=== PATIENT | female | born 1940 | race Two or more races ===

== ENCOUNTER 2021-08-20 09:02 | Inpatient (IN) | payer MEDICAID ==
[~2021-08-20] VITALS: Ht 157.5 cm; Wt 54.9 kg
[~2021-08-20 09:02] MED LIST: CALC-1305 PO; DOCU-138 MT; GABA-532 PO; INSU100I28 SQ; LEVO500T90 MT; LISINOPRIL-HCTZ; METF-416 PO; MIRT-89 PO
[2021-08-20] MEDS ORDERED: SODIUM CHLORIDE 0.9% 1000ML BAG (SEPSIS BOLUS) IV ONE (09:45)
[2021-08-20 10:02] LABS: INR 1.2; PROTHROMBIN TIME 12.4 sec (9.6-11.0)
[2021-08-20 10:10] LABS: BASOPHILS % 0.1 % (0.0-2.0); CHLORIDE 102 mEq/L (98-107); EOSINOPHILS % 0.1 % (0.0-5.0); HEMATOCRIT. 41.1 % (36.0-48.0); HEMOGLOBIN. 13.6 g/dL (12.0-16.0); LYMPHOCYTES % 9.9 % (20.0-50.0); MEAN CORPUSCULAR HEMOGLOBIN 30.1 pg (28.0-32.0); MEAN CORPUSCULAR VOLUME 90.6 fL (81.0-99.0); MEAN PLATELET VOLUME 9.3 fl (7.4-10.4); MONOCYTES % 2.7 % (2.0-8.0); NEUTROPHILS % 87.2 % (40.0-76.0); PLATELET 182 x1000/uL (130-400); RED BLOOD CELL COUNT 4.53 mill/uL (4.2-5.4); RED CELL DISTRIBUTION WIDTH 14.7 % (11.6-14.6)
[2021-08-20] MEDS ORDERED: PIPERACILLIN/TAZOBACTAM 3.375GM/50ML PREMIX IV NR (10:30)
[2021-08-20] MEDS: VANCOMYCIN 1G PREMIX 200 ML IV SCH (11:01)
[2021-08-20 11:26] LABS: CLARITY URINE CLOUDY (CLEAR); COLOR URINE YELLOW (YELLOW); KETONES URINE TRACE (NEGATIVE); LEUKOCYTE ESTERASE URINE 3+ (NEGATIVE); NITRITE URINE NEGATIVE (NEGATIVE); OCCULT BLOOD URINE 1+ (NEGATIVE); PH URINE 5.5 (4.5-8.0); PROTEIN URINE 1+ (NEGATIVE)
[2021-08-20] MEDS ORDERED: ONDANSETRON HCL 4MG/2ML INJ IV PRN (14:15)
[2021-08-20] MEDS: SODIUM CHLORIDE 0.9% 1,000 ML IV SCH (14:41)
[2021-08-20] MEDS ORDERED: CEFTRIAXONE 1 G PREMIX 50 ML IV SCH (15:00)
[2021-08-20] MEDS: AMLODIPINE 10MG TABLET PO SCH (17:45)
[2021-08-20] MEDS: BLOOD SUGAR DIAGNOSTIC STRIP TEST SCH (18:00)
[2021-08-21 04:57] LABS: BASOPHILS % 0.1 % (0.0-2.0); HEMATOCRIT. 39.3 % (36.0-48.0); HEMOGLOBIN. 13.1 g/dL (12.0-16.0); LYMPHOCYTES % 11.8 % (20.0-50.0); MEAN CORPUSCULAR HEMOGLOBIN 29.9 pg (28.0-32.0); MEAN CORPUSCULAR VOLUME 89.8 fL (81.0-99.0); MEAN PLATELET VOLUME 8.7 fl (7.4-10.4); NEUTROPHILS % 85.1 % (40.0-76.0); PLATELET 186 x1000/uL (130-400); RED BLOOD CELL COUNT 4.37 mill/uL (4.2-5.4); RED CELL DISTRIBUTION WIDTH 14.6 % (11.6-14.6)
[2021-08-21 05:14] LABS: CHLORIDE 104 mEq/L (98-107)
[2021-08-21] MEDS ORDERED: HYDRALAZINE 20MG/ML VIAL IV PRN (09:30)
[2021-08-21] MEDS: SODIUM CHLORIDE 0.9% 1,000 ML IV SCH (10:15)
[2021-08-21] MEDS: VANCOMYCIN 1G PREMIX 200 ML IV SCH (10:30)
[2021-08-21 13:00] VITALS: BP 175/90
[2021-08-21] MEDS ORDERED: POTASSIUM CHLORIDE INJ 40 MEQ in DEXT 5% WATER 250 ML IV NR (14:00)
[2021-08-21 15:06] VITALS: BP 175/90
[2021-08-21 16:00] VITALS: BP 142/71
[2021-08-21] MEDS: INSULIN LISPRO 100 UNITS/ML SUBCUT SCH ×2 (18:15→21:40)
[2021-08-21] MEDS: BLOOD SUGAR DIAGNOSTIC STRIP TEST SCH ×2 (18:17→21:35)
[2021-08-21 20:00] VITALS: BP 137/67
[2021-08-21] MEDS: CEFTRIAXONE 1,000 MG in DEXTROSE 5% WATER 50 ML IV SCH (21:35)
[2021-08-21] MEDS: INSULIN GLARGINE 100 UNITS/ML SUBCUT SCH (21:41)
[2021-08-21] MEDS ORDERED: HYDRALAZINE 10 MG in SODIUM CHLORIDE 0.9% 49.5 ML IV PRN (22:45)
[2021-08-22] VITALS: BP 101/60
[2021-08-22 04:00] VITALS: BP 109/54
[2021-08-22] MEDS ORDERED: MAGNESIUM 1 G PREMIX 100 ML IV SCH (04:00)
[2021-08-22] MEDS: SODIUM CHLORIDE 0.9% 1,000 ML IV SCH (05:56)
[2021-08-22] MEDS: DEXTROSE 50% WATER 50ML SYRINGE IV PRN (06:17)
[2021-08-22] MEDS: BLOOD SUGAR DIAGNOSTIC STRIP TEST SCH ×4 (06:21→21:10)
[2021-08-22 08:00] VITALS: BP 123/57
[2021-08-22] MEDS: AMLODIPINE 10MG TABLET PO SCH (08:26)
[2021-08-22] MEDS: INSULIN LISPRO 100 UNITS/ML SUBCUT SCH ×4 (08:27→21:00)
[2021-08-22] MEDS ORDERED: METOPROLOL SUCCINATE 50MG ER TABLET PO STA (10:48)
[2021-08-22] MEDS ORDERED: METOPROLOL TARTRATE 25MG TABLET PO NR (11:00)
[2021-08-22] MEDS: INSULIN GLARGINE 100 UNITS/ML SUBCUT SCH (11:14)
[2021-08-22 12:00] VITALS: BP 123/57
[2021-08-22 16:00] VITALS: BP 137/66
[2021-08-22 17:06] LABS: BASOPHILS % 0.2 % (0.0-2.0); EOSINOPHILS % 0.4 % (0.0-5.0); HEMATOCRIT. 38.4 % (36.0-48.0); HEMOGLOBIN. 12.8 g/dL (12.0-16.0); LYMPHOCYTES % 10.2 % (20.0-50.0); MEAN CORPUSCULAR HEMOGLOBIN 30.3 pg (28.0-32.0); MEAN CORPUSCULAR VOLUME 90.9 fL (81.0-99.0); MEAN PLATELET VOLUME 9.5 fl (7.4-10.4); MONOCYTES % 3.8 % (2.0-8.0); NEUTROPHILS % 85.4 % (40.0-76.0); PLATELET 231 x1000/uL (130-400); RED BLOOD CELL COUNT 4.23 mill/uL (4.2-5.4)
[2021-08-22 17:24] LABS: CHLORIDE 104 mEq/L (98-107)
[2021-08-22] MEDS: CEFTRIAXONE 1,000 MG in DEXTROSE 5% WATER 50 ML IV SCH (19:13)
[2021-08-22 20:00] VITALS: BP 148/72
[2021-08-22] MEDS: METOPROLOL TARTRATE 25MG TABLET PO SCH (21:10)
[2021-08-23] VITALS: BP 128/71
[2021-08-23] MEDS: SODIUM CHLORIDE 0.9% 1,000 ML IV SCH ×2 (01:18→21:49)
[2021-08-23 04:00] VITALS: BP 148/75
[2021-08-23] MEDS: BLOOD SUGAR DIAGNOSTIC STRIP TEST SCH ×4 (06:25→21:43)
[2021-08-23] MEDS: INSULIN LISPRO 100 UNITS/ML SUBCUT SCH ×4 (07:47→21:59)
[2021-08-23 07:59] VITALS: BP 111/72
[2021-08-23] MEDS: METOPROLOL TARTRATE 25MG TABLET PO SCH ×2 (08:29→21:50)
[2021-08-23] MEDS: AMLODIPINE 10MG TABLET PO SCH (08:38)
[2021-08-23] MEDS ORDERED: SULF1TAB48 MT (09:30)
[2021-08-23 12:26] VITALS: BP 142/85
[2021-08-23 16:14] VITALS: BP 150/72
[2021-08-23] MEDS: CEFTRIAXONE 1,000 MG in DEXTROSE 5% WATER 50 ML IV SCH (18:15)
[2021-08-23 20:00] VITALS: BP 155/62
[2021-08-23] MEDS: PANTOPRAZOLE SODIUM 40 MG/VIAL IV SCH (21:50)
[2021-08-24] VITALS: BP 130/65
[2021-08-24 04:00] VITALS: BP 168/83
[2021-08-24] MEDS ORDERED: HYDRALAZINE 20MG/ML VIAL IV PRN (06:30)
[2021-08-24] MEDS: BLOOD SUGAR DIAGNOSTIC STRIP TEST SCH ×4 (06:32→21:00)
[2021-08-24 07:16] LABS: BASOPHILS % 0.1 % (0.0-2.0); EOSINOPHILS % 2.3 % (0.0-5.0); HEMATOCRIT. 40.1 % (36.0-48.0); HEMOGLOBIN. 13.5 g/dL (12.0-16.0); LYMPHOCYTES % 16.2 % (20.0-50.0); MEAN CORPUSCULAR HEMOGLOBIN 30.4 pg (28.0-32.0); MEAN CORPUSCULAR VOLUME 90.3 fL (81.0-99.0); MONOCYTES % 4.6 % (2.0-8.0); NEUTROPHILS % 76.8 % (40.0-76.0); PLATELET 194 x1000/uL (130-400); RED BLOOD CELL COUNT 4.44 mill/uL (4.2-5.4); RED CELL DISTRIBUTION WIDTH 14.9 % (11.6-14.6)
[2021-08-24 07:38] VITALS: BP 164/69
[2021-08-24] MEDS: INSULIN LISPRO 100 UNITS/ML SUBCUT SCH ×4 (07:50→21:00)
[2021-08-24 07:57] LABS: CHLORIDE 106 mEq/L (98-107)
[2021-08-24] MEDS: AMLODIPINE 10MG TABLET PO SCH ×2 (08:19→09:41)
[2021-08-24] MEDS: METOPROLOL TARTRATE 25MG TABLET PO SCH ×3 (08:19→21:00)
[2021-08-24] MEDS: PANTOPRAZOLE SODIUM 40 MG/VIAL IV SCH ×2 (09:10→22:35)
[2021-08-24 10:49] LABS: INR 1.1; PROTHROMBIN TIME 11.4 sec (9.6-11.0)
[2021-08-24 12:09] VITALS: BP 137/69
[2021-08-24] MEDS ORDERED: MIDAZOLAM HCL 2 MG/2 ML VIAL ONE (16:08)
[2021-08-24] MEDS ORDERED: PROPOFOL 200MG/20ML VIAL IV ONE (16:08)
[2021-08-24] MEDS ORDERED: CEFAZOLIN SODIUM 1000MG/VIAL ONE (16:17)
[2021-08-24] MEDS: CEFTRIAXONE 1,000 MG in DEXTROSE 5% WATER 50 ML IV SCH (18:28)
[2021-08-24] MEDS: SODIUM CHLORIDE 0.9% 1,000 ML IV SCH (18:28)
[2021-08-24 20:00] VITALS: BP 107/58
[2021-08-25 04:00] VITALS: BP 144/66
[2021-08-25 07:06] LABS: CHLORIDE 106 mEq/L (98-107)
[2021-08-25] MEDS: BLOOD SUGAR DIAGNOSTIC STRIP TEST SCH ×4 (07:20→20:59)
[2021-08-25 08:00] VITALS: BP 149/78
[2021-08-25 09:23] LABS: BASOPHILS % 0.1 % (0.0-2.0); EOSINOPHILS % 1.4 % (0.0-5.0); HEMATOCRIT. 39.4 % (36.0-48.0); HEMOGLOBIN. 12.8 g/dL (12.0-16.0); LYMPHOCYTES % 15.3 % (20.0-50.0); MEAN CORPUSCULAR HEMOGLOBIN 30.1 pg (28.0-32.0); MEAN CORPUSCULAR VOLUME 92.5 fL (81.0-99.0); MEAN PLATELET VOLUME 8.6 fl (7.4-10.4); MONOCYTES % 4.6 % (2.0-8.0); NEUTROPHILS % 78.6 % (40.0-76.0); PLATELET 185 x1000/uL (130-400); RED BLOOD CELL COUNT 4.26 mill/uL (4.2-5.4)
[2021-08-25] MEDS: PANTOPRAZOLE SODIUM 40 MG/VIAL IV SCH ×2 (09:32→20:58)
[2021-08-25] MEDS: AMLODIPINE 10MG TABLET PO SCH (09:32)
[2021-08-25] MEDS: METOPROLOL TARTRATE 25MG TABLET PO SCH ×2 (09:32→20:58)
[2021-08-25] MEDS: INSULIN LISPRO 100 UNITS/ML SUBCUT SCH ×4 (09:48→20:59)
[2021-08-25 12:00] VITALS: BP 131/63
[2021-08-25 15:50] VITALS: BP 123/65
[2021-08-25] MEDS: SODIUM CHLORIDE 0.9% 1,000 ML IV SCH (16:57)
[2021-08-25] MEDS: CEFTRIAXONE 1,000 MG in DEXTROSE 5% WATER 50 ML IV SCH (18:30)
[2021-08-25 20:00] VITALS: BP 129/67
[2021-08-26] VITALS (7 sets, daily range): BP systolic 106–155; BP diastolic 70–88
[2021-08-26] MEDS: BLOOD SUGAR DIAGNOSTIC STRIP TEST SCH ×4 (06:17→21:14)
[2021-08-26 07:06] LABS: CHLORIDE 104 mEq/L (98-107)
[2021-08-26 07:30] LABS: BASOPHILS % 0.2 % (0.0-2.0); EOSINOPHILS % 1.8 % (0.0-5.0); HEMATOCRIT. 32.2 % (36.0-48.0); MEAN CORPUSCULAR HEMOGLOBIN 30.7 pg (28.0-32.0); MEAN CORPUSCULAR VOLUME 89.9 fL (81.0-99.0); MEAN PLATELET VOLUME 8.7 fl (7.4-10.4); MONOCYTES % 5.5 % (2.0-8.0); NEUTROPHILS % 80.5 % (40.0-76.0); PLATELET 233 x1000/uL (130-400); RED BLOOD CELL COUNT 3.58 mill/uL (4.2-5.4); RED CELL DISTRIBUTION WIDTH 14.7 % (11.6-14.6)
[2021-08-26] MEDS: INSULIN LISPRO 100 UNITS/ML SUBCUT SCH ×4 (07:49→21:13)
[2021-08-26] MEDS: PANTOPRAZOLE SODIUM 40 MG/VIAL IV SCH ×2 (09:15→21:11)
[2021-08-26] MEDS: METOPROLOL TARTRATE 25MG TABLET PO SCH ×2 (09:15→21:14)
[2021-08-26] MEDS: AMLODIPINE 10MG TABLET PO SCH (09:15)
[2021-08-26] MEDS: SODIUM CHLORIDE 0.9% 1,000 ML IV SCH (10:15)
[2021-08-26] MEDS ORDERED: INSULIN GLARGINE 100 UNITS/ML SUBCUT NR (11:00)
[2021-08-26] MEDS: ACETAMINOPHEN 325MG TABLET PO PRN (18:17)
[2021-08-26] MEDS ORDERED: INSULIN GLARGINE 100 UNITS/ML SUBCUT SCH (22:00)
[2021-08-27 03:50] VITALS: BP 119/66
[2021-08-27] MEDS: BLOOD SUGAR DIAGNOSTIC STRIP TEST SCH ×4 (06:29→20:50)
[2021-08-27] MEDS: DEXTROSE 50% WATER 50ML SYRINGE IV PRN (06:30)
[2021-08-27] MEDS: SODIUM CHLORIDE 0.9% 1,000 ML IV SCH (06:30)
[2021-08-27] MEDS: INSULIN LISPRO 100 UNITS/ML SUBCUT SCH ×4 (07:50→20:50)
[2021-08-27 08:00] VITALS: BP 150/83
[2021-08-27] MEDS: PANTOPRAZOLE SODIUM 40 MG/VIAL IV SCH ×2 (08:27→21:03)
[2021-08-27] MEDS: METOPROLOL TARTRATE 25MG TABLET PO SCH ×2 (08:28→21:03)
[2021-08-27] MEDS: AMLODIPINE 10MG TABLET PO SCH (08:28)
[2021-08-27 09:18] LABS: BASOPHILS % 0.2 % (0.0-2.0); EOSINOPHILS % 1.5 % (0.0-5.0); HEMATOCRIT. 32.5 % (36.0-48.0); HEMOGLOBIN. 11.2 g/dL (12.0-16.0); MEAN CORPUSCULAR HEMOGLOBIN 30.6 pg (28.0-32.0); MEAN CORPUSCULAR VOLUME 89.1 fL (81.0-99.0); MEAN PLATELET VOLUME 8.6 fl (7.4-10.4); NEUTROPHILS % 81.3 % (40.0-76.0); PLATELET 257 x1000/uL (130-400); RED BLOOD CELL COUNT 3.65 mill/uL (4.2-5.4); RED CELL DISTRIBUTION WIDTH 14.9 % (11.6-14.6)
[2021-08-27 09:32] LABS: CHLORIDE 108 mEq/L (98-107)
[2021-08-27] MEDS ORDERED: TRAMADOL 50MG TABLET PO PRN (11:15)
[2021-08-27] MEDS ORDERED: NALOXONE HCL 0.4MG/ML VIAL IV PRN (11:45)
[2021-08-27 12:03] VITALS: BP 157/66
[2021-08-27 16:00] VITALS: BP 156/74
[2021-08-27] MEDS: ACETAMINOPHEN 325MG TABLET PO PRN (18:05)
[2021-08-27 20:00] VITALS: BP 137/81
[2021-08-27] MEDS: INSULIN GLARGINE 100 UNITS/ML SUBCUT SCH (21:04)
[2021-08-27] MEDS: NITROGLYCERIN OINT 1GM/INCH UDPKT TD SCH (22:00)
[2021-08-28] VITALS: BP 112/58
[2021-08-28] MEDS: SODIUM CHLORIDE 0.9% 1,000 ML IV SCH ×2 (02:05→22:16)
[2021-08-28 03:57] VITALS: BP 114/51
[2021-08-28] MEDS: NITROGLYCERIN OINT 1GM/INCH UDPKT TD SCH (05:57)
[2021-08-28] MEDS: BLOOD SUGAR DIAGNOSTIC STRIP TEST SCH ×4 (06:44→20:42)
[2021-08-28 07:39] LABS: BASOPHILS % 0.2 % (0.0-2.0); EOSINOPHILS % 2.7 % (0.0-5.0); HEMOGLOBIN. 10.5 g/dL (12.0-16.0); LYMPHOCYTES % 13.2 % (20.0-50.0); MEAN CORPUSCULAR HEMOGLOBIN 30.4 pg (28.0-32.0); MEAN CORPUSCULAR VOLUME 89.6 fL (81.0-99.0); MEAN PLATELET VOLUME 8.3 fl (7.4-10.4); MONOCYTES % 6.8 % (2.0-8.0); NEUTROPHILS % 77.1 % (40.0-76.0); PLATELET 240 x1000/uL (130-400); RED BLOOD CELL COUNT 3.46 mill/uL (4.2-5.4); RED CELL DISTRIBUTION WIDTH 14.9 % (11.6-14.6)
[2021-08-28 07:45] LABS: CHLORIDE 103 mEq/L (98-107)
[2021-08-28 07:51] VITALS: BP 130/57
[2021-08-28] MEDS: INSULIN LISPRO 100 UNITS/ML SUBCUT SCH ×4 (08:31→22:14)
[2021-08-28] MEDS: PANTOPRAZOLE SODIUM 40 MG/VIAL IV SCH ×2 (08:53→21:45)
[2021-08-28] MEDS: METOPROLOL TARTRATE 25MG TABLET PO SCH ×2 (08:53→21:46)
[2021-08-28] MEDS: AMLODIPINE 10MG TABLET PO SCH (08:54)
[2021-08-28] MEDS: INSULIN GLARGINE 100 UNITS/ML SUBCUT SCH ×2 (10:49→22:15)
[2021-08-28 12:00] VITALS: BP 119/53
[2021-08-28 16:00] VITALS: BP 123/63
[2021-08-28 20:00] VITALS: BP 122/50
[2021-08-29] VITALS: BP 122/65
[2021-08-29 04:00] VITALS: BP 120/56
[2021-08-29] MEDS: BLOOD SUGAR DIAGNOSTIC STRIP TEST SCH ×4 (06:36→20:39)
[2021-08-29] MEDS: INSULIN LISPRO 100 UNITS/ML SUBCUT SCH ×4 (07:50→21:12)
[2021-08-29 08:06] VITALS: BP 134/71
[2021-08-29] MEDS: PANTOPRAZOLE SODIUM 40 MG/VIAL IV SCH ×2 (08:54→20:59)
[2021-08-29] MEDS: AMLODIPINE 10MG TABLET PO SCH (08:55)
[2021-08-29] MEDS: METOPROLOL TARTRATE 25MG TABLET PO SCH ×2 (08:55→21:00)
[2021-08-29] MEDS: INSULIN GLARGINE 100 UNITS/ML SUBCUT SCH ×2 (10:24→21:11)
[2021-08-29 12:07] VITALS: BP 122/62
[2021-08-29 16:15] VITALS: BP 112/54
[2021-08-29] MEDS: SODIUM CHLORIDE 0.9% 1,000 ML IV SCH (18:49)
[2021-08-29 20:00] VITALS: BP 110/54
[2021-08-30] VITALS: BP 118/54
[2021-08-30 04:00] VITALS: BP 120/56
[2021-08-30] MEDS: BLOOD SUGAR DIAGNOSTIC STRIP TEST SCH ×4 (06:45→20:25)
[2021-08-30 07:03] LABS: BASOPHILS % 0.3 % (0.0-2.0); EOSINOPHILS % 0.8 % (0.0-5.0); HEMATOCRIT. 36.6 % (36.0-48.0); HEMOGLOBIN. 12.3 g/dL (12.0-16.0); LYMPHOCYTES % 12.3 % (20.0-50.0); MEAN CORPUSCULAR HEMOGLOBIN 30.4 pg (28.0-32.0); MEAN CORPUSCULAR VOLUME 90.5 fL (81.0-99.0); MEAN PLATELET VOLUME 8.5 fl (7.4-10.4); MONOCYTES % 3.8 % (2.0-8.0); NEUTROPHILS % 82.8 % (40.0-76.0); PLATELET 322 x1000/uL (130-400); RED BLOOD CELL COUNT 4.05 mill/uL (4.2-5.4)
[2021-08-30 07:28] LABS: CHLORIDE 103 mEq/L (98-107)
[2021-08-30] MEDS: INSULIN LISPRO 100 UNITS/ML SUBCUT SCH ×4 (07:39→21:22)
[2021-08-30 07:46] VITALS: BP 165/94
[2021-08-30] MEDS: PANTOPRAZOLE SODIUM 40 MG/VIAL IV SCH ×2 (08:28→21:11)
[2021-08-30] MEDS: DOCUSATE SODIUM SUGAR FREE 100MG/10ML UDC GT SCH (08:28)
[2021-08-30] MEDS: AMLODIPINE 10MG TABLET PO SCH (08:29)
[2021-08-30] MEDS: METOPROLOL TARTRATE 25MG TABLET PO SCH ×2 (08:29→21:11)
[2021-08-30] MEDS: ACETAMINOPHEN 325MG TABLET PO PRN (08:39)
[2021-08-30] MEDS: INSULIN GLARGINE 100 UNITS/ML SUBCUT SCH ×2 (09:02→21:22)
[2021-08-30] MEDS ORDERED: LIDOCAINE HCL/PF 2% 20MG/ML 5 ML/VIAL INJ NR (10:15)
[2021-08-30] MEDS ORDERED: LIDOCAINE HCL 2% JELLY 5ML TOP NR (10:17)
[2021-08-30 11:48] VITALS: BP 114/65
[2021-08-30] MEDS: SODIUM CHLORIDE 0.9% 1,000 ML IV SCH (14:22)
[2021-08-30 20:00] VITALS: BP 127/60
[2021-08-31] VITALS: BP 92/53
[2021-08-31 04:00] VITALS: BP 145/55
[2021-08-31] MEDS: BLOOD SUGAR DIAGNOSTIC STRIP TEST SCH ×4 (06:57→20:35)
[2021-08-31 07:14] LABS: BASOPHILS % 0.4 % (0.0-2.0); EOSINOPHILS % 1.4 % (0.0-5.0); HEMATOCRIT. 34.2 % (36.0-48.0); HEMOGLOBIN. 11.5 g/dL (12.0-16.0); LYMPHOCYTES % 17.1 % (20.0-50.0); MEAN CORPUSCULAR HEMOGLOBIN 30.4 pg (28.0-32.0); MEAN CORPUSCULAR VOLUME 90.4 fL (81.0-99.0); MEAN PLATELET VOLUME 8.5 fl (7.4-10.4); MONOCYTES % 4.2 % (2.0-8.0); NEUTROPHILS % 76.9 % (40.0-76.0); PLATELET 337 x1000/uL (130-400); RED BLOOD CELL COUNT 3.79 mill/uL (4.2-5.4); RED CELL DISTRIBUTION WIDTH 15.1 % (11.6-14.6)
[2021-08-31 07:31] LABS: CHLORIDE 100 mEq/L (98-107)
[2021-08-31] MEDS: INSULIN LISPRO 100 UNITS/ML SUBCUT SCH ×4 (07:39→20:41)
[2021-08-31 07:44] VITALS: BP 148/101
[2021-08-31] MEDS: PANTOPRAZOLE SODIUM 40 MG/VIAL IV SCH ×2 (08:49→20:40)
[2021-08-31] MEDS: METOPROLOL TARTRATE 25MG TABLET PO SCH ×2 (08:49→20:39)
[2021-08-31] MEDS: DOCUSATE SODIUM SUGAR FREE 100MG/10ML UDC GT SCH (08:49)
[2021-08-31] MEDS: AMLODIPINE 10MG TABLET PO SCH (08:50)
[2021-08-31] MEDS: INSULIN GLARGINE 100 UNITS/ML SUBCUT SCH (09:14)
[2021-08-31] MEDS: SODIUM CHLORIDE 0.9% 1,000 ML IV SCH (09:24)
[2021-08-31] MEDS ORDERED: LIDOCAINE HCL/PF 2% 20MG/ML 5 ML/VIAL INJ NR (10:15)
[2021-08-31] MEDS ORDERED: LIDOCAINE HCL 2% JELLY 5ML TOP NR (10:17)
[2021-08-31 12:12] VITALS: BP 138/56
[2021-08-31] MEDS ORDERED: HYDRALAZINE 10 MG in SODIUM CHLORIDE 0.9% 49.5 ML IV PRN (13:00)
[2021-08-31 16:00] VITALS: BP 130/68
[2021-08-31 20:00] VITALS: BP 124/55
[2021-09-01] VITALS: BP 114/55
[2021-09-01 04:00] VITALS: BP 140/71
[2021-09-01] MEDS: SODIUM CHLORIDE 0.9% 1,000 ML IV SCH (05:16)
[2021-09-01 06:07] LABS: BASOPHILS % 0.5 % (0.0-2.0); EOSINOPHILS % 1.8 % (0.0-5.0); HEMATOCRIT. 29.4 % (36.0-48.0); HEMOGLOBIN. 9.9 g/dL (12.0-16.0); LYMPHOCYTES % 15.9 % (20.0-50.0); MEAN CORPUSCULAR HEMOGLOBIN 30.7 pg (28.0-32.0); MEAN PLATELET VOLUME 8.5 fl (7.4-10.4); MONOCYTES % 5.3 % (2.0-8.0); NEUTROPHILS % 76.5 % (40.0-76.0); PLATELET 274 x1000/uL (130-400); RED BLOOD CELL COUNT 3.23 mill/uL (4.2-5.4); RED CELL DISTRIBUTION WIDTH 15.3 % (11.6-14.6)
[2021-09-01 06:12] LABS: CHLORIDE 100 mEq/L (98-107)
[2021-09-01] MEDS: BLOOD SUGAR DIAGNOSTIC STRIP TEST SCH ×4 (07:30→21:28)
[2021-09-01] MEDS: INSULIN LISPRO 100 UNITS/ML SUBCUT SCH ×4 (07:50→21:41)
[2021-09-01 08:00] VITALS: BP 150/82
[2021-09-01] MEDS: DOCUSATE SODIUM SUGAR FREE 100MG/10ML UDC GT SCH (08:51)
[2021-09-01] MEDS: PANTOPRAZOLE SODIUM 40 MG/VIAL IV SCH ×2 (08:52→21:16)
[2021-09-01] MEDS: AMLODIPINE 10MG TABLET PO SCH (08:54)
[2021-09-01] MEDS: METOPROLOL TARTRATE 25MG TABLET PO SCH ×2 (08:54→21:17)
[2021-09-01 12:00] VITALS: BP 130/91
[2021-09-01 16:00] VITALS: BP 142/66
[2021-09-01 20:07] VITALS: BP 142/63
[2021-09-01] MEDS: INSULIN GLARGINE 100 UNITS/ML SUBCUT SCH (21:42)
[2021-09-02] VITALS: BP 102/60
[2021-09-02] MEDS: SODIUM CHLORIDE 0.9% 1,000 ML IV SCH ×2 (01:21→22:00)
[2021-09-02 04:00] VITALS: BP 134/53
[2021-09-02] MEDS: BLOOD SUGAR DIAGNOSTIC STRIP TEST SCH ×4 (06:23→21:43)
[2021-09-02] MEDS: INSULIN LISPRO 100 UNITS/ML SUBCUT SCH ×4 (07:50→21:42)
[2021-09-02 08:00] VITALS: BP 151/70
[2021-09-02 08:01] LABS: BASOPHILS % 0.4 % (0.0-2.0); EOSINOPHILS % 1.4 % (0.0-5.0); HEMATOCRIT. 33.5 % (36.0-48.0); HEMOGLOBIN. 11.2 g/dL (12.0-16.0); LYMPHOCYTES % 12.9 % (20.0-50.0); MEAN CORPUSCULAR HEMOGLOBIN 30.7 pg (28.0-32.0); MEAN CORPUSCULAR VOLUME 91.9 fL (81.0-99.0); MEAN PLATELET VOLUME 8.9 fl (7.4-10.4); MONOCYTES % 4.8 % (2.0-8.0); NEUTROPHILS % 80.5 % (40.0-76.0); PLATELET 291 x1000/uL (130-400); RED BLOOD CELL COUNT 3.65 mill/uL (4.2-5.4); RED CELL DISTRIBUTION WIDTH 15.5 % (11.6-14.6)
[2021-09-02] MEDS: AMLODIPINE 10MG TABLET PO SCH (09:00)
[2021-09-02] MEDS: DOCUSATE SODIUM SUGAR FREE 100MG/10ML UDC GT SCH (09:00)
[2021-09-02 09:18] LABS: CHLORIDE 102 mEq/L (98-107)
[2021-09-02] MEDS: INSULIN GLARGINE 100 UNITS/ML SUBCUT SCH ×2 (10:00→21:43)
[2021-09-02] MEDS: PANTOPRAZOLE SODIUM 40 MG/VIAL IV SCH ×2 (11:00→21:29)
[2021-09-02] MEDS: METOPROLOL TARTRATE 25MG TABLET PO SCH ×2 (11:08→21:39)
[2021-09-02 12:00] VITALS: BP 104/60
[2021-09-02 16:00] VITALS: BP 124/56
[2021-09-02 20:00] VITALS: BP 112/48
[2021-09-03] VITALS: BP 130/55
[2021-09-03 04:00] VITALS: BP 140/60
[2021-09-03 06:34] LABS: BASOPHILS % 0.5 % (0.0-2.0); EOSINOPHILS % 1.4 % (0.0-5.0); HEMATOCRIT. 31.4 % (36.0-48.0); HEMOGLOBIN. 10.5 g/dL (12.0-16.0); LYMPHOCYTES % 14.1 % (20.0-50.0); MEAN CORPUSCULAR HEMOGLOBIN 30.8 pg (28.0-32.0); MEAN CORPUSCULAR VOLUME 92.3 fL (81.0-99.0); MEAN PLATELET VOLUME 8.1 fl (7.4-10.4); MONOCYTES % 5.3 % (2.0-8.0); NEUTROPHILS % 78.7 % (40.0-76.0); PLATELET 297 x1000/uL (130-400); RED BLOOD CELL COUNT 3.41 mill/uL (4.2-5.4); RED CELL DISTRIBUTION WIDTH 15.4 % (11.6-14.6)
[2021-09-03 06:36] LABS: CHLORIDE 105 mEq/L (98-107)
[2021-09-03] MEDS: BLOOD SUGAR DIAGNOSTIC STRIP TEST SCH ×4 (06:44→21:30)
[2021-09-03] MEDS: INSULIN LISPRO 100 UNITS/ML SUBCUT SCH ×4 (07:50→22:19)
[2021-09-03 08:00] VITALS: BP 161/79
[2021-09-03] MEDS: DOCUSATE SODIUM SUGAR FREE 100MG/10ML UDC GT SCH (09:49)
[2021-09-03] MEDS: PANTOPRAZOLE SODIUM 40 MG/VIAL IV SCH ×2 (09:50→21:30)
[2021-09-03] MEDS: METOPROLOL TARTRATE 25MG TABLET PO SCH ×2 (09:50→21:00)
[2021-09-03] MEDS: AMLODIPINE 10MG TABLET PO SCH (09:51)
[2021-09-03] MEDS: INSULIN GLARGINE 100 UNITS/ML SUBCUT SCH ×2 (11:05→22:20)
[2021-09-03 12:00] VITALS: BP 147/69
[2021-09-03 16:00] VITALS: BP 101/53
[2021-09-03] MEDS: SODIUM CHLORIDE 0.9% 1,000 ML IV SCH (17:59)
[2021-09-03 20:00] VITALS: BP 112/55
[2021-09-04] VITALS: BP 139/65
[2021-09-04 04:00] VITALS: BP 146/74
[2021-09-04] MEDS: BLOOD SUGAR DIAGNOSTIC STRIP TEST SCH ×4 (07:25→21:00)
[2021-09-04] MEDS: INSULIN LISPRO 100 UNITS/ML SUBCUT SCH ×4 (07:50→21:59)
[2021-09-04 08:53] VITALS: BP 175/71
[2021-09-04] MEDS: METOPROLOL TARTRATE 25MG TABLET PO SCH ×2 (09:00→21:42)
[2021-09-04] MEDS: AMLODIPINE 10MG TABLET PO SCH (09:09)
[2021-09-04] MEDS: DOCUSATE SODIUM SUGAR FREE 100MG/10ML UDC GT SCH (09:11)
[2021-09-04 09:49] LABS: BASOPHILS % 0.4 % (0.0-2.0); HEMATOCRIT. 29.7 % (36.0-48.0); HEMOGLOBIN. 10.3 g/dL (12.0-16.0); LYMPHOCYTES % 15.5 % (20.0-50.0); MEAN CORPUSCULAR HEMOGLOBIN 31.4 pg (28.0-32.0); MEAN CORPUSCULAR VOLUME 90.4 fL (81.0-99.0); MEAN PLATELET VOLUME 7.9 fl (7.4-10.4); MONOCYTES % 4.3 % (2.0-8.0); NEUTROPHILS % 78.8 % (40.0-76.0); PLATELET 330 x1000/uL (130-400); RED BLOOD CELL COUNT 3.28 mill/uL (4.2-5.4); RED CELL DISTRIBUTION WIDTH 15.7 % (11.6-14.6)
[2021-09-04 10:06] LABS: CHLORIDE 102 mEq/L (98-107)
[2021-09-04] MEDS: INSULIN GLARGINE 100 UNITS/ML SUBCUT SCH ×2 (11:53→22:00)
[2021-09-04 12:17] VITALS: BP 142/70
[2021-09-04 15:34] VITALS: BP 127/57
[2021-09-04 20:00] VITALS: BP 142/67
[2021-09-04] MEDS: PANTOPRAZOLE SODIUM 40 MG/VIAL IV SCH (21:00)
[2021-09-05] VITALS: BP 131/60
[2021-09-05 04:00] VITALS: BP 134/65
[2021-09-05 07:14] LABS: BASOPHILS % 0.6 % (0.0-2.0); HEMATOCRIT. 28.9 % (36.0-48.0); HEMOGLOBIN. 9.8 g/dL (12.0-16.0); LYMPHOCYTES % 15.7 % (20.0-50.0); MEAN CORPUSCULAR HEMOGLOBIN 31.6 pg (28.0-32.0); MEAN PLATELET VOLUME 8.3 fl (7.4-10.4); MONOCYTES % 5.8 % (2.0-8.0); NEUTROPHILS % 75.9 % (40.0-76.0); PLATELET 274 x1000/uL (130-400); RED BLOOD CELL COUNT 3.11 mill/uL (4.2-5.4); RED CELL DISTRIBUTION WIDTH 16.1 % (11.6-14.6)
[2021-09-05] MEDS: BLOOD SUGAR DIAGNOSTIC STRIP TEST SCH ×3 (07:20→17:05)
[2021-09-05] MEDS: INSULIN LISPRO 100 UNITS/ML SUBCUT SCH ×3 (07:50→18:04)
[2021-09-05 08:00] VITALS: BP 156/67
[2021-09-05 08:33] LABS: CHLORIDE 102 mEq/L (98-107)
[2021-09-05] MEDS: AMLODIPINE 10MG TABLET PO SCH (08:36)
[2021-09-05] MEDS: METOPROLOL TARTRATE 25MG TABLET PO SCH (08:36)
[2021-09-05] MEDS: PANTOPRAZOLE SODIUM 40 MG/VIAL IV SCH ×3 (08:37→14:29)
[2021-09-05 08:38] LABS: PHOSPHORUS 4.5 mg/dL (2.5-4.9)
[2021-09-05] MEDS: DOCUSATE SODIUM SUGAR FREE 100MG/10ML UDC GT SCH (08:40)
[2021-09-05] MEDS: INSULIN GLARGINE 100 UNITS/ML SUBCUT SCH (10:30)
[2021-09-05 12:00] VITALS: BP 140/60
[2021-09-05] MEDS ORDERED: MAGNESIUM 2 G PREMIX 50 ML IV NR (12:00)
[2021-09-05 13:41] VITALS: BP 140/60
[2021-09-05 16:00] VITALS: BP 133/63
== END 2021-09-05 19:12 | DRG 720 ==
LOC: ER 09:18 → MICUSO 12:55 → EDBEDREQSVC 12:59 → EDBEDREQ 12:59 → 6WST 08-21 07:21 → 6EST 08-31 12:30
PROVIDERS: ADMIT Internal Medicine Nephrology; ATTEND Internal Medicine Nephrology
PROC: 0DH63UZ Insertion of Feeding Device into Stomach, Percutaneous Approach (ICD-10-PCS; principal; 2021-08-24)
PROC: 0JB70ZZ Excision of Back Subcutaneous Tissue and Fascia, Open Approach (ICD-10-PCS; 2021-08-31)
DX: A41.9 Sepsis, unspecified organism (principal); G93.41 Metabolic encephalopathy; L89.153 Pressure ulcer of sacral region, stage 3; E44.0 Moderate protein-calorie malnutrition; N39.0 Urinary tract infection, site not specified; F03.90 Unspecified dementia, unspecified severity, without behavioral disturbance, psychotic disturbance, mood disturbance, and anxiety; B96.20 Unspecified Escherichia coli [E. coli] as the cause of diseases classified elsewhere; E11.9 Type 2 diabetes mellitus without complications; D64.9 Anemia, unspecified; Z20.822 Contact with and (suspected) exposure to COVID-19; K29.70 Gastritis, unspecified, without bleeding; I10 Essential (primary) hypertension; B96.1 Klebsiella pneumoniae [K. pneumoniae] as the cause of diseases classified elsewhere; Z86.73 Personal history of transient ischemic attack (TIA), and cerebral infarction without residual deficits; Z68.22 Body mass index [BMI] 22.0-22.9, adult; Z87.440 Personal history of urinary (tract) infections
CPT/HCPCS: 36415; 71045; 80048; 80053; 81003; 82040; 82962; 83605; 83735; 84100; 84134; 84145; 84484; 85025; 87077; 87186; 87426; 93005; 99285; C9113; C9803; J0360; J0690; J0696; J1815; J2250; J2543; J2704; J3370; J3475; J3480; J3490; J7030; J7060